=== PATIENT | male | born 1935 | race Two or more races ===

== ENCOUNTER 2021-12-10 20:03 | Inpatient (IN) | payer BC ==
[~2021-12-10] VITALS: Ht 177.8 cm; Wt 95.3 kg
[2021-12-10] MEDS ORDERED: SERTRALINE HCL25 MG (20:16)
[2021-12-10] MEDS ORDERED: ATORVASTATIN CA10 MG (20:16)
[2021-12-10] MEDS ORDERED: ECOTRIN81 MG (20:16)
--- NOTE | 2021-12-10 20:17 | NUR ---
SE RECIBE PTE ALERTA Y ORIENTADO X 3 ESFERAS EN AMBULANCIA REFERIDO POR UN CRUCERO POR DIFICULTAD RESPIRATORIA Y PALPITACIONES. AL MOMENTO RECIBIENDO DRIP DE AMIODARONA. SE REALIZA EKG Y SE PRESENTA A . SE UBICA EN UNIDAD DE DOLOR DE PECHO.
--- NOTE | 2021-12-10 22:52 | NUR ---
SE RECIBE PTE ALERTA Y ORIENTADO X3, SE CONECTA A MONITOR CARDIACO Y OXIMETRIA DE PULSO CONTINUA. SE COLECTAN MUESTRAS Y SE CANALIZA PTE UTILIZANDO MEDIDAS ASEPTICAS. SE ADMINISTRAN MEDICAMENTO AMY ORDEN MEDICA.
--- NOTE | 2021-12-10 23:06 | NUR ---
SE RECIBE PTE ALERTRA Y ORIENTADO X3 EN CAMRON. PTE CONECTADO A MONITOR CARDIACO CON OXIMETRIA CONTINUA. PTE CON H/L X2 GANESH SD EEDEMA. PTE CON DRIP DE CARDIZEM 100MG/100ML BAJANDO A 5ML/HR. PTE CONSULTADO CON MEDICINA INTERNA. PTE SE CONTINUA MONITORIANDO POR CAMBIOS.
[2021-12-11] MEDS ORDERED: PRAVASTATIN SOD20 MG (08:09)
[2021-12-11] MEDS ORDERED: METRONIDAZOLE500 MG (08:09)
[2021-12-11] MEDS ORDERED: OXYC1TAB9 (08:09)
== END 2021-12-12 14:13 | disposition left against medical advice (07) | DRG 310 ==
LOC: ER 20:03 → ICU-2 23:35 → MEDJ 12-11 11:39
PROVIDERS: ADMIT Internal Medicine; ATTEND Internal Medicine
PROC: B24BZZZ Ultrasonography of Heart with Aorta (ICD-10-PCS; principal; 2021-12-10)
PROC: 4A12X4Z Monitoring of Cardiac Electrical Activity, External Approach (ICD-10-PCS; 2021-12-11)
DX: I48.91 Unspecified atrial fibrillation (principal); I10 Essential (primary) hypertension; Z20.822 Contact with and (suspected) exposure to COVID-19